=== PATIENT | female | born 1985 | race Caucasian/White ===

== ENCOUNTER 2019-03-11 20:18 | Emergency (ER) | payer OTHER ==
[~2019-03-11] VITALS: Ht 160 cm; Wt 67.1 kg
[~2019-03-11 20:18] MED LIST: CEPH-443 PO; IBUP-1561 PO
[2019-03-11 20:22] VITALS: Ht 160 cm; Wt 67.1 kg
[2019-03-11] MEDS ORDERED: ACETAMINOPHEN 325 MG TAB PO ONE (21:00)
[2019-03-11 21:48] VITALS: BP 118/60; PULSE 90; RESP 16
--- NOTE | 2019-03-12 03:15 | ERD ---
ER Documentation Chief Complaint Chief Complaint LEFT BREAST TENDERNESS W/ FEVERS, GAVE 5-WEEKS AGO HPI This is a 33-year-old 5-week female presents to the ED complaining of left breast pain and swelling x2 days. Patient also reports fevers as high as 101 F. She last took ibuprofen several hours prior to arrival here. Patient is currently breast-feeding. Denies any nipple discharge. No history of same. No other complaints. ROS All systems reviewed and are negative except as per history of present illness. Medications Home Meds Active Scripts Ibuprofen* (Motrin*) 400 Mg Tab, 400 MG PO Q6H PRN for PAIN AND OR ELEVATED TEMP, #30 TAB Prov:DISHIGRIKIANJUMAUR N PA-C 03/11/19 Cephalexin* (Keflex*) 500 Mg Capsule, 500 MG PO QID for 10 Days, CAP Prov:DISHIGRIKIAN,ZEPYUR N PA-C 03/11/19 Allergies Allergies: Coded Allergies: No Known Allergy (Unverified , 03/11/19) PMhx/Soc Medical and Surgical Hx: pt denies Medical Hx, pt denies Surgical Hx Hx Alcohol Use: No Hx Substance Use: No Hx Tobacco Use: No Smoking Status: Never smoker Physical Exam Vitals Vital Signs Date Temp Pulse Resp B/P (MAP) Pulse Ox O2 O2 Flow FiO2 Time Delivery Rate 03/11/19 99.1 90 16 118/60 98 Room Air 21:48 (79) 03/11/19 102.1 21:06 03/11/19 102.1 105 16 114/67 97 20:22 (83) Physical Exam Const: No acute distress Head: Atraumatic Eyes: Normal Conjunctiva ENT: Normal External Ears, Nose and Mouth. Skin: + Area of tenderness and erythema to the superior aspect of the left breast, breast slightly swollen and firm, no nipple discharge. No fluctuance or abscess. Neur: Awake and alert Psych: Normal Mood and Affect Results 24 hrs Current Medications Medications Dose Sig/Sasha Start Time Status Last (Trade) Ordered Route PRN Stop Time Admin Dose Reason Admin 650 mg ONCE ONCE 03/11/19 DC 03/11/19 Acetaminophen PO 21:00 21:06 (Tylenol 03/11/19 21:01 Tab) Procedures/MDM ED COURSE: The patient was given Tylenol The medication was well tolerated and the patient had market improvement in symptoms. The patient remained stable throughout ED course. MEDICAL DECISION MAKIN-year-old 5-week female presents with lactational mastitis. She has a low-grade fever here however is nontoxic-appearing and well-hydrated. I have low suspicion for sepsis. There is no evidence of significant cellulitis, abscess or deep space tissue infection at this time. She is stable for discharge home and outpatient antibiotics. I recommended continued breast- feeding and warm compresses to help with pain. She is also follow-up with her hand bunch maker sometime next week. Strict return precautions were discussed. PRESCRIPTIONS: Keflex, ibuprofen SPECIALIST FOLLOW UP RECOMMENDED: None Patient has been advised to follow up with primary care in 1-2 days. Departure Diagnosis: Primary Impression: Nonpurulent mastitis associated with Condition: Stable Patient Instructions: Mastitis Referrals: [facility] YOU HAVE RECEIVED A MEDICAL SCREENING EXAM AND THE RESULTS INDICATE THAT YOU DO NOT HAVE A CONDITION THAT REQUIRES URGENT TREATMENT IN THE EMERGENCY DEPARTMENT. FURTHER EVALUATION AND TREATMENT OF YOUR CONDITION CAN WAIT UNTIL YOU ARE SEEN IN YOUR DOCTORS OFFICE WITHIN THE NEXT 1-2 DAYS. IT IS YOUR RESPONSIBILITY TO MAKE AN APPOINTMENT FOR FOLOW-UP CARE. IF YOU HAVE A PRIMARY DOCTOR --you should call your primary doctor and schedule an appointment IF YOU DO NOT HAVE A PRIMARY DOCTOR YOU CAN CALL OUR PHYSICIAN REFERRAL HOTLINE AT IF YOU CAN NOT AFFORD TO SEE A PHYSICIAN YOU CAN CHOSE FROM THE FOLLOWING [facility] [address] [facility]. [facility] [address] [facility] [facility] [address] [facility] [facility] [address] [facility]. [facility] [address] [facility]. [facility]. [address] Additional Instructions: You must finish the entire course of antibiotics for the next 10 days. He can take ibuprofen for pain, cold compresses will also aid with pain. He should continue breast-feeding/pumping/massaging. Follow-up with your hand bunch maker next week. Return here for any new or worsening symptoms. PAUL MANSFIELD PA-C Mar 12, 2019 03:15
== END 2019-03-11 22:18 | disposition home or self-care (01) ==
LOC: FTE 20:18
DX: O91.23 Nonpurulent mastitis associated with lactation (principal); R50.9 Fever, unspecified
CPT/HCPCS: 99283